=== PATIENT | female | born 1955 | race Caucasian/White ===

== ENCOUNTER 2020-11-14 13:00 | Outpatient (RCR) | payer BC, MEDICARE | END 2020-11-15 | LOC: OT 13:00 | PROVIDERS: ATTEND Orthopaedic Surgery | DX: S62.511D Displaced fracture of proximal phalanx of right thumb, subsequent encounter for fracture with routine healing (principal); M79.644 Pain in right finger(s); M25.641 Stiffness of right hand, not elsewhere classified | CPT/HCPCS: 97010 ×6; 97110 ×7; 97165; L3808 ==

== ENCOUNTER 2020-12-10 13:00 | Outpatient (RCR) | payer BC, MEDICARE | END 2020-12-16 | LOC: OT 13:00 | PROVIDERS: ATTEND Orthopaedic Surgery | DX: S62.511D Displaced fracture of proximal phalanx of right thumb, subsequent encounter for fracture with routine healing (principal); M79.644 Pain in right finger(s); M25.641 Stiffness of right hand, not elsewhere classified | CPT/HCPCS: 97010 ×6; 97110 ×6; 97140 ×2; L3921 ==

== ENCOUNTER 2020-12-26 13:00 | Outpatient (RCR) | payer BC, MEDICARE | END 2021-01-15 | LOC: OT 13:00 | PROVIDERS: ATTEND Orthopaedic Surgery | DX: S62.511A Displaced fracture of proximal phalanx of right thumb, initial encounter for closed fracture (principal) ==